=== PATIENT | female | born 1955 | race Caucasian/White ===

== ENCOUNTER 2016-10-01 12:54 | Outpatient (CLI) | payer OTHER ==
[2016-09-30 14:05] VITALS: BP 177/90; Ht 152.4 cm; Wt 47.7 kg
--- NOTE | 2016-09-30 14:35 | NUR ---
CALL PLACED TO PHARMACY DUE TO MEDICATION NOT BEING BROUGHT TO DEPARTMENT YET FOR PATIENT'S INJECTION OF PROLIA. PHARMACIST STATES THAT THERE IS NO PROLIA AVAILABLE AT THIS TIME AND PATIENT WILL NEED TO BE RESCHEDULED. [employer] ENGINEER TO COME TALK TO PATIENT AND APOLOGIZE
--- NOTE | 2016-09-30 14:40 | NUR ---
RESCHEDULED PATIENT WITH KETAN IN SCHEDULING FOR INJECTION TOMORROW 10/01/16, TO ARRIVE AT 1300, PATIENT AWARE, PATIENT LEAVES DEPARTMENT
[~2016-10-01] VITALS: Ht 152.4 cm; Wt 47.7 kg
[~2016-10-01 12:54] MED LIST: BUTALBITAL-ASP-1 CAP PO; LEVOTHYROXINE75 MCG PO; LIVALO2 MG PO; NORVASC5 MG PO; PROZAC20 MG; VITAMIN D50000 UNIT PO
== END 2016-10-01 13:45 | disposition home or self-care (01) ==
LOC: D.OPS 12:54
DX: M81.0 Age-related osteoporosis without current pathological fracture (principal)

== ENCOUNTER 2017-04-07 11:11 | Outpatient (CLI) | payer OTHER ==
[~2017-04-07] VITALS: Ht 152.4 cm; Wt 50.0 kg
[2017-04-07 11:48] VITALS: BP 168/89; Ht 152.4 cm; Wt 50.0 kg
--- NOTE | 2017-04-07 12:03 | NUR ---
1202 DENIES PROBLEMS WITH INJECTION. WATER SERVED. DC INSTS REVIEWED STATES THIS IS HER 3RD INJECTION AND HAD NO PROBLEMS WITH PREVIOUS INJECTIONS, HANDOUT PROVIDED. RELEASED AMBULATORY.
== END 2017-04-07 12:02 | disposition home or self-care (01) ==
LOC: D.OPS 11:11
DX: M81.0 Age-related osteoporosis without current pathological fracture (principal)

== ENCOUNTER 2017-10-07 12:38 | Outpatient (CLI) | payer OTHER ==
[~2017-10-07] VITALS: Ht 152.4 cm; Wt 50.0 kg
[2017-10-07 13:17] VITALS: BP 160/89; Ht 152.4 cm; Wt 50.0 kg
== END 2017-10-07 13:25 | disposition home or self-care (01) ==
LOC: D.OPS 12:38
DX: M81.0 Age-related osteoporosis without current pathological fracture (principal)

== ENCOUNTER → 2018-04-28 13:42 | Outpatient (CLI) | payer OTHER ==
[~2018-04-28] VITALS: Ht 152.4 cm; Wt 50.0 kg
[2018-04-28 14:03] VITALS: BP 170/96; Ht 152.4 cm; Wt 50.0 kg
== END | disposition home or self-care (01) ==
LOC: D.OPS 04-13 13:30
DX: M81.0 Age-related osteoporosis without current pathological fracture (principal); Z01.812 Encounter for preprocedural laboratory examination

== ENCOUNTER → 2018-10-20 13:41 | Outpatient (CLI) | payer OTHER ==
[~2018-10-20] VITALS: Ht 152.4 cm; Wt 54.5 kg
[2018-10-20 14:07] VITALS: BP 144/76; Ht 152.4 cm; Wt 54.5 kg
== END | disposition home or self-care (01) ==
LOC: D.OPS 13:41
PROVIDERS: ATTEND Family Medicine
DX: M18.0 Bilateral primary osteoarthritis of first carpometacarpal joints (principal)

== ENCOUNTER 2019-04-26 12:06 | Outpatient (CLI) | payer OTHER ==
[~2019-04-26] VITALS: Ht 152.4 cm; Wt 54.5 kg
[2019-04-26 12:34] VITALS: Ht 152.4 cm; Wt 54.5 kg
--- NOTE | 2019-04-26 12:36 | NUR ---
PT RECEIVED DC INSTRUCTIONS. STATES UNDERSTANDING. PT LEFT UNIT AMBULATING AT 1237.
== END 2019-04-26 12:37 | disposition home or self-care (01) ==
LOC: D.OPS 12:06
PROVIDERS: ATTEND Family Medicine
DX: M81.0 Age-related osteoporosis without current pathological fracture (principal)

== ENCOUNTER → 2019-11-01 12:52 | Outpatient (CLI) | payer OTHER ==
[~2019-11-01] VITALS: Ht 152.4 cm; Wt 54.5 kg
[~2019-11-01 12:52] MED LIST changes: +BENICAR40 MG PO
[2019-11-01 14:15] VITALS: BP 144/87; Ht 152.4 cm; Wt 54.5 kg
== END | disposition home or self-care (01) ==
LOC: D.OPS 12:52
PROVIDERS: ATTEND Family Medicine
DX: M81.0 Age-related osteoporosis without current pathological fracture (principal)

== ENCOUNTER 2020-11-08 11:38 | Outpatient (CLI) | payer OTHER ==
[~2020-11-08] VITALS: Ht 152.4 cm; Wt 53.6 kg
[2020-11-08 13:55] VITALS: BP 131/71; Ht 152.4 cm; Wt 53.6 kg
== END 2020-11-08 13:01 | disposition home or self-care (01) ==
LOC: D.OPS 11:38
PROVIDERS: ATTEND Family Medicine
DX: M81.0 Age-related osteoporosis without current pathological fracture (principal)